=== PATIENT | female | born 1995 ===

== ENCOUNTER 2016-07-27 20:53 | Emergency (ER) | payer SELFPAY ==
[2016-07-27 21:26] VITALS: RESP 16
[2016-07-27] MEDS ORDERED: Sodium Chloride 0.9% 1,000 ML IV STA (22:29)
--- NOTE | 2016-07-27 22:32 | ED PDOC ---
HPI: General Adult Time Seen by Provider: 07/27/16 22:22 Chief Complaint (Nursing): Abdominal Pain Chief Complaint (Provider): fever History Per: Patient History/Exam Limitations: no limitations Onset/Duration Of Symptoms: Days (2) Current Symptoms Are (Timing): Still Present Additional History Per: Patient Additional Complaint(s): 21 y/o female presents with fever x 2 days. Associated sore throat, vomiting. Denies ear pain, cough, congestion, chest pain, shortness of breath, urinary symptoms, vaginal bleeding/discharge, recent travel, sick contacts. Advil taken at noon. Past Medical History Reviewed: Historical Data, Nursing Documentation, Vital Signs Vital Signs: Last Vital Signs Temp 98.6 F 07/28/16 00:10 Pulse 92 H 07/28/16 00:10 Resp 16 07/28/16 00:10 BP 92/50 L 07/28/16 00:10 Pulse Ox 98 07/28/16 00:10 - Medical History PMH: No Chronic Diseases - Surgical History Surgical History: - Family History Family History: States: Unknown Family Hx - Home Medications Home Medications: Ambulatory Orders Medication Instructions Recorded Amoxicillin/Clavulanate [Augmentin 1 tab PO Q12 #19 tab 07/27/16 875 MG-125 MG] Ibuprofen [Motrin Tab] 1 tab PO Q6 PRN #20 tab 07/28/16 - Allergies Allergies/Adverse Reactions: Allergies Allergy/AdvReac Type Severity Reaction Status Date / Time No Known Allergies Allergy Verified 07/27/16 21:22 Review of Systems ROS Statement: Except As Marked, All Systems Reviewed And Found Negative Constitutional: Positive for: Fever, Chills ENT: Positive for: Throat Pain Gastrointestinal: Positive for: Nausea, Vomiting, Abdominal Pain Physical Exam - Reviewed Nursing Documentation Reviewed: Yes Vital Signs Reviewed: Yes - Physical Exam Appears: Positive for: Well, Non-toxic, No Acute Distress Head Exam: Positive for: ATRAUMATIC, NORMAL INSPECTION, NORMOCEPHALIC Skin: Positive for: Normal Color Eye Exam: Positive for: Normal appearance ENT: Positive for: Pharyngeal Erythema, Tonsillar Swelling (b/l) Cardiovascular/Chest: Positive for: Regular Rate, Rhythm Respiratory: Positive for: Normal Breath Sounds Gastrointestinal/Abdominal: Positive for: Normal Exam Back: Positive for: Normal Inspection Extremity: Positive for: Normal ROM Neurologic/Psych: Positive for: Alert, Oriented - Laboratory Results Result Diagrams: 07/27/16 22:55 07/27/16 22:55 - ECG O2 Sat by Pulse Oximetry: 100 - Progress ED Course And Treament: labs, urine, rapid strep, flu, tylenol PO, IV fluids On re-eval, patient states she is feeling better. Patient educated on findings, given rx Augmentin (does given), ibuprofen. Advised fluids, rest. Follow up PMD 2-3 days. Return to ED for worsening/concerning symptoms. Disposition - Clinical Impression Clinical Impression: Urinary tract infection, Strep throat - Patient ED Disposition Is Patient to be Admitted: No Counseled Patient/Family Regarding: Studies Performed, Diagnosis, Need For Followup, Rx Given - Disposition Referrals: [facility] [Outside] Disposition: Routine/Home Disposition Time: 00:44 Condition: IMPROVED Prescriptions: Amoxicillin/Clavulanate [Augmentin 875 MG-125 MG] 1 tab PO Q12 #19 tab Ibuprofen [Motrin Tab] 1 tab PO Q6 PRN #20 tab PRN Reason: Pain, Moderate (4-7) Instructions: Urinary Tract Infection in Women (ED), Strep Throat (ED) Print Language: PASHTO
[2016-07-27 22:58] LABS: BASO # 0.1 K/uL (0.0-0.2); BASO % 0.4 % (0.0-2.0); EOS # 0.2 K/uL (0.0-0.7); EOS % 0.9 % (0.0-4.0); HEMATOCRIT 38.8 % (34.0-47.0); LYMPH # 3.4 K/uL (1.0-4.3); LYMPH % 18.4 % (20.0-40.0); MEAN CELL VOLUME 82.9 fl (81.0-99.0); MEAN CORPUSCULAR HEMOGLOBIN 27.3 pg (27.0-31.0); MEAN CORPUSCULAR HGB CONC 32.9 g/dL (33.0-37.0); MEAN PLATELET VOLUME 9.3 fl (7.2-11.7); MONO # 1.4 K/uL (0.0-0.8); MONO % 7.7 % (0.0-10.0); NEUT # 13.4 K/uL (1.8-7.0); NEUT % 72.6 % (50.0-75.0); RED CELL DISTRIBUTION WIDTH 13.2 % (11.5-14.5); WHITE BLOOD COUNT 18.5 K/uL (4.8-10.8)
[2016-07-27 23:12] LABS: ALB/GLOB RATIO 1.1 (1.0-2.1); ALKALINE PHOSPHATASE 84 U/L (38-126); ALT/SGPT 29 U/L (9-52); AST/SGOT 22 U/L (14-36); BILIRUBIN,TOTAL 0.6 mg/dl (0.2-1.3); BLOOD UREA NITROGEN 7 mg/dl (7-17); CALCIUM 9.5 mg/dL (8.4-10.2); CARBON DIOXIDE 23 mmol/L (22-30); CHLORIDE 101 mmol/L (98-107); GFR AFRICAN-AMERICAN > 60; GLUCOSE,RANDOM 106 mg/dL (65-105); LIPASE 59 U/L (23-300); POTASSIUM 3.7 MMOL/L (3.6-5.0); SODIUM 143 mmol/l (132-148); TOTAL PROTEIN 8.4 G/DL (6.3-8.2)
[2016-07-27 23:28] LABS: RBC URINE 59 /hpf (0-3); URINE BILIRUBIN NEGATIVE (NEGATIVE); URINE BLOOD LARGE (NEGATIVE); URINE COLOR YELLOW (YELLOW); URINE GLUCOSE (UA) NEG (Normal); URINE KETONE NEGATIVE (NEGATIVE); URINE LEUKOCYTE ESTERASE MOD Leu/uL (Negative); URINE PROTEIN NEGATIVE (NEGATIVE); URINE UROBILINOGEN 0.2-1.0 mg/dL (0.2-1.0); WBC URINE 26 /hpf (0-5)
[2016-07-27 23:32] LABS: URINE BACTERIA FEW (<OCC)
[2016-07-27] MEDS ORDERED: Amoxicillin-Clav 875-125 mg Tab PO STA (23:35)
[2016-07-28 00:10] VITALS: BP 92/50; PULSE 92; TEMP 98.6
[2016-07-28] MEDS ORDERED: Amoxicillin-Clav 875-125 mg Tab PO ONE (00:29)
[2016-07-28 00:46] VITALS: O2SAT 100
== END 2016-07-28 00:50 | disposition home or self-care (01) ==
LOC: H.ER 20:53
DX: N39.0 Urinary tract infection, site not specified (principal); J02.0 Streptococcal pharyngitis; R10.9 Unspecified abdominal pain
CPT/HCPCS: 80053; 81003; 81025; 83605; 83690; 85025; 87040; 87086; 87430; 87804; 96360; 99283; J2405; J7040

== ENCOUNTER 2018-05-16 09:12 | Emergency (ER) | payer OTHER ==
--- NOTE | 2018-05-16 10:04 | ED PDOC ---
HPI: Skin/Bite Injury Time Seen by Provider: 05/16/18 09:40 Chief Complaint (Nursing): Allergic Reaction Chief Complaint (Provider): Rash History Per: Patient History/Exam Limitations: no limitations Onset/Duration Of Symptoms: Hrs Current Symptoms Are (Timing): Still Present Quality Of Symptoms: Painful, Itching Additional Complaint(s): 22 year old female presents to the ED for an evaluation of rash that is itchy and pain onset today with diarrhea. Patient drank home-made juice with spinach, pineapple, pickle and celery. She states she had the same juice yesterday. Otherwise, she denies difficulty breathing, cough, nausea, vomiting or change in lotion, soap or food. PMD: no family provider Past Medical History Reviewed: Historical Data, Nursing Documentation, Vital Signs Vital Signs: Last Vital Signs Temp 97.6 F 05/16/18 09:24 Pulse 85 05/16/18 09:24 Resp 17 05/16/18 09:24 BP 112/61 05/16/18 09:24 Pulse Ox 99 05/16/18 09:24 - Medical History PMH: No Chronic Diseases - Surgical History Surgical History: - Family History Family History: States: Unknown Family Hx - Social History Current smoker - smoking cessation education provided: No Alcohol: None Drugs: Denies - Home Medications Home Medications: Ambulatory Orders Medication Instructions Recorded Amoxicillin/Clavulanate [Augmentin 1 tab PO Q12 #19 tab 07/27/16 875 MG-125 MG] RX: Ibuprofen [Motrin Tab] 1 tab PO Q6 PRN #20 tab 07/28/16 DiphenhydrAMINE [Benadryl] 25 mg PO Q6 PRN #20 cap 05/16/18 RX: Prednisone 50 mg PO DAILY #3 tablet 05/16/18 - Allergies Allergies/Adverse Reactions: Allergies Allergy/AdvReac Type Severity Reaction Status Date / Time No Known Allergies Allergy Verified 05/16/18 09:33 Review of Systems ROS Statement: Except As Marked, All Systems Reviewed And Found Negative Constitutional: Negative for: Fever, Chills Respiratory: Negative for: Cough, Shortness of Breath Gastrointestinal: Positive for: Diarrhea. Negative for: Nausea, Vomiting Skin: Positive for: Rash Physical Exam - Reviewed Nursing Documentation Reviewed: Yes Vital Signs Reviewed: Yes - Physical Exam Appears: Positive for: Well, Non-toxic, No Acute Distress Head Exam: Positive for: ATRAUMATIC, NORMAL INSPECTION, NORMOCEPHALIC Skin: Positive for: Rash (red, urticaria type rash with margins distributed on arms and legs bilaterally and no on the trunk of facial area) Eye Exam: Positive for: Normal appearance, EOMI, PERRL ENT: Positive for: Normal ENT Inspection Neck: Positive for: Normal, Painless ROM, Supple. Negative for: Decreased ROM Cardiovascular/Chest: Positive for: Regular Rate, Rhythm Respiratory: Positive for: Normal Breath Sounds. Negative for: Decreased Breath Sounds, Respiratory Distress Gastrointestinal/Abdominal: Positive for: Normal Exam, Soft. Negative for: Tenderness, Guarding, Rebound Extremity: Positive for: Normal ROM. Negative for: Tenderness, Pedal Edema, Deformity Neurologic/Psych: Positive for: Alert, Oriented (x3) - ECG O2 Sat by Pulse Oximetry: 99 (RA) Pulse Ox Interpretation: Normal - Progress Re-evaluation Time: 11:18 Condition: Re-examined, Improved Medical Decision Making Medical Decision Making: Time: 948 Impression: rash, urticaria, allergic reaction likely related to the food Plan: --Benadryl 50mg --Pepcid 20mg --predniSONE 60mg --Reevaluation Scribe Attestation: Documented by Joselyn Saxena, acting as a scribe for Hailee Carpenter MD. Provider Scribe Attestation: All medical record entries made by the Scribe were at my direction and personally dictated by me. I have reviewed the chart and agree that the record accurately reflects my personal performance of the history, physical exam, medical decision making, and the department course for this patient. I have also personally directed, reviewed, and agree with the discharge instructions and disposition. Disposition - Clinical Impression Clinical Impression: Allergic reaction, Hay fever - Patient ED Disposition Is Patient to be Admitted: No Doctor Will See Patient In The: Office Counseled Patient/Family Regarding: Studies Performed, Diagnosis, Need For Followup - Disposition Referrals: [facility] [Outside] Disposition: Routine/Home Disposition Time: 11:19 Condition: GOOD Additional Instructions: STEFF ARGUELLO, thank you for letting us take care of you today. Your provider was Hailee Carpenter MD and you were treated for BODY RASH. The emergency medical care you received today was directed at your acute symptoms. If you were prescribed any medication, please fill it and take as directed. It may take several days for your symptoms to resolve. Return to the Emergency Department if your symptoms worsen, do not improve, or if you have any other problems. Please contact your doctor or call one of the physicians/clinics you have been referred to that are listed on the Patient Visit Information form that is included in your discharge packet. Bring any paperwork you were given at discharge with you along with any medications you are taking to your follow up visit. Our treatment cannot replace ongoing medical care by a primary care provider outside of the emergency department. Thank you for allowing the [facility] team to be part of your care today. If you had an X-Ray or CT scan: A Radiologist will review the ED reading if any change in treatment is needed we will contact you. If you had a blood, urine, or wound culture: It will take several days for the results, if any change in treatment is needed we will contact you. If you had an STI test: It will take 48 hours for the results. Please call after 1 week if you have not heard back. Prescriptions: DiphenhydrAMINE [Benadryl] 25 mg PO Q6 PRN #20 cap PRN Reason: Rash RX: Prednisone 50 mg PO DAILY #3 tablet Instructions: Deirdre (DC)
[2018-05-16] MEDS ORDERED: Alum-Mag Hydrox-Simethicone Susp (30 mL) PO ONE (10:53)
[2018-05-16] MEDS ORDERED: Alum-Mag Hydrox-Simethicone Susp (30 mL) ONE (11:22)
[2018-05-16 11:29] VITALS: BP 122/74; PULSE 78; RESP 16; TEMP 98
[2018-05-17 07:31] VITALS: O2SAT 99
== END 2018-05-16 12:10 | disposition home or self-care (01) ==
LOC: H.ER 09:12
DX: L50.0 Allergic urticaria (principal); J30.1 Allergic rhinitis due to pollen

== ENCOUNTER 2018-05-18 10:58 | Emergency (ER) | payer SELFPAY ==
[2018-05-18 11:16] VITALS: BMI 26.7
[2018-05-18 11:18] VITALS: TEMP 97.5; O2SAT 98
[2018-05-18 12:49] LABS: SQUAMOUS EPITHIAL 3 /hpf (0-5); URINE BILIRUBIN NEGATIVE (NEGATIVE); URINE BLOOD NEGATIVE (NEGATIVE); URINE CLARITY CLEAR (Clear); URINE COLOR COLORLESS (YELLOW); URINE GLUCOSE (UA) NEG (NEGATIVE); URINE LEUKOCYTE ESTERASE TRACE Leu/uL (Negative); URINE PROTEIN NEGATIVE (NEGATIVE); URINE UROBILINOGEN 0.2-1.0 mg/dL (0.2-1.0)
--- NOTE | 2018-05-18 13:22 | ED PDOC ---
HPI: General Adult Time Seen by Provider: 05/18/18 11:39 Chief Complaint (Nursing): Abdominal Pain Chief Complaint (Provider): Rash, abdominal pain History Per: Patient History/Exam Limitations: no limitations Onset/Duration Of Symptoms: Days Have you had recent travel within the past 21 days to any of the following countries: [place], [place], [place] or [place]?: No Current Symptoms Are (Timing): Still Present Additional History Per: Patient Additional Complaint(s): 22yo female, otherwise well, comes to ER reporting generalized itching and rash. She states she was seen in this ER on 05/16 for similar complaints, was given benadryl and discharged home. She states the rash returned today, but upon arrival, it had resolved. She denies any shortness of breath, throat swelling and states she has not used any new lotions, detergents or linens. Patient has an additional complaint of lower abdominal pain; no dysuria, hematuria, and no additional complaints. PMD: None Past Medical History Reviewed: Historical Data, Nursing Documentation, Vital Signs Vital Signs: Last Vital Signs Temp 97.5 F L 05/18/18 11:16 Pulse 80 05/18/18 11:16 Resp 20 05/18/18 11:16 BP 101/62 05/18/18 12:52 Pulse Ox 98 05/18/18 11:16 - Medical History PMH: No Chronic Diseases - Surgical History Surgical History: - Family History Family History: States: No Known Family Hx - Home Medications Home Medications: Ambulatory Orders Medication Instructions Recorded Amoxicillin/Clavulanate [Augmentin 1 tab PO Q12 #19 tab 07/27/16 875 MG-125 MG] RX: Ibuprofen [Motrin Tab] 1 tab PO Q6 PRN #20 tab 07/28/16 DiphenhydrAMINE [Benadryl] 25 mg PO Q6 PRN #20 cap 05/16/18 RX: Prednisone 50 mg PO DAILY #3 tablet 05/16/18 RX: Amoxicillin 500 mg PO BID #14 tablet 05/18/18 - Allergies Allergies/Adverse Reactions: Allergies Allergy/AdvReac Type Severity Reaction Status Date / Time No Known Allergies Allergy Verified 05/18/18 11:35 Review of Systems ROS Statement: Except As Marked, All Systems Reviewed And Found Negative Gastrointestinal: Positive for: Abdominal Pain. Negative for: Vomiting, Diarrhea Genitourinary Female: Negative for: Dysuria, Frequency, Hematuria Skin: Positive for: Rash Physical Exam - Reviewed Nursing Documentation Reviewed: Yes Vital Signs Reviewed: Yes - Physical Exam Appears: Positive for: Non-toxic, No Acute Distress Head Exam: Positive for: ATRAUMATIC, NORMAL INSPECTION, NORMOCEPHALIC Skin: Positive for: Normal Color, Warm. Negative for: Rash Eye Exam: Positive for: Normal appearance ENT: Positive for: TM Is/Are (left tm erythema) Neck: Positive for: Supple Cardiovascular/Chest: Positive for: Regular Rate, Rhythm Respiratory: Positive for: Normal Breath Sounds Gastrointestinal/Abdominal: Positive for: Normal Exam, Soft. Negative for: Tenderness Back: Positive for: Normal Inspection Extremity: Positive for: Normal ROM Neurologic/Psych: Positive for: Alert, Oriented. Negative for: Motor/Sensory Deficits - Laboratory Results Lab Results: Urine Color Colorless (YELLOW) 05/18/18 12:34 Urine Clarity Clear (Clear) 05/18/18 12:34 Urine pH 7.0 (5.0-8.0) 05/18/18 12:34 Ur Specific Walton 1.006 (1.003-1.030) 05/18/18 12:34 Urine Protein Negative mg/dL (NEGATIVE) 05/18/18 12:34 Urine Glucose (UA) Neg mg/dL (NEGATIVE) 05/18/18 12:34 Urine Ketones Negative mg/dL (NEGATIVE) 05/18/18 12:34 Urine Blood Negative (NEGATIVE) 05/18/18 12:34 Urine Nitrate Negative (NEGATIVE) 05/18/18 12:34 Urine Bilirubin Negative (NEGATIVE) 05/18/18 12:34 Urine Urobilinogen 0.2-1.0 mg/dL (0.2-1.0) 05/18/18 12:34 Ur Leukocyte Esterase Trace Juan Jose/uL (Negative) 05/18/18 12:34 Urine RBC (Auto) 1 /hpf (0-3) 05/18/18 12:34 Urine Microscopic WBC 1 /hpf (0-5) 05/18/18 12:34 Ur Squamous Epith Cells 3 /hpf (0-5) 05/18/18 12:34 - ECG O2 Sat by Pulse Oximetry: 98 (RA) Pulse Ox Interpretation: Normal Medical Decision Making Medical Decision Makinyo female with resolved rash; lower abdominal pain left otitis media Plan: -- Urinalysis -- Tylenol 650mg PO 1329 UA reviewed, no acute findings. pt feels improved Patient to be discharged home with PO antibiotics due to otitis media Scribe Attestation: Documented by Torie Woody acting as a scribe for Krishna Olson MD. Provider Attestation: All medical record entries made by the Scribe were at my direction and personally dictated by me. I have reviewed the chart and agree that the record accurately reflects my personal performance of the history, physical exam, medical decision making, and the department course for this patient. I have also personally directed, reviewed, and agree with the discharge instructions and disposition. Disposition - Clinical Impression Clinical Impression: Abdominal pain, Otitis media - Patient ED Disposition Is Patient to be Admitted: No Counseled Patient/Family Regarding: Studies Performed, Diagnosis, Need For Fol lowup - Disposition Referrals: [facility] [Outside] [facility] [Outside] Disposition: Routine/Home Disposition Time: 13:36 Condition: IMPROVED Additional Instructions: follow up in the clinic in 2 days return to the ED with any worsening or concerning symptoms take benadryl for allergic reaction Prescriptions: RX: Amoxicillin 500 mg PO BID #14 tablet Instructions: Ear Infections (Otitis Media) Forms: [employer] (German)
[2018-05-18 14:52] VITALS: BP 107/73; PULSE 85; RESP 18
== END 2018-05-18 14:04 | disposition home or self-care (01) ==
LOC: H.ER 10:58
DX: H66.90 Otitis media, unspecified, unspecified ear (principal); R10.9 Unspecified abdominal pain